=== PATIENT | female | born 1960 | race Caucasian/White ===

== ENCOUNTER 2022-10-20 06:22 | Day surgery (SDC) | payer MEDICAID ==
[2022-10-11 10:08] LABS: BASOPHILS % (AUTO) 0.4 % (0-1); EOSINOPHILS # (AUTO) 0.2 X10'3 (0-0.9); EOSINOPHILS % (AUTO) 2.2 % (0-6); LYMPHOCYTES # (AUTO) 2.4 X10'3 (1.1-4.8); LYMPHOCYTES % (AUTO) 32.8 % (21-51); MEAN CORPUSCULAR HEMOGLOBIN 33.3 PG (27.0-31.0); MEAN CORPUSCULAR HGB CONC 34.5 g/dL (33.0-36.5); MEAN CORPUSCULAR VOLUME 96.5 FL (78-98); MEAN PLATELET VOLUME 8.2 FL (7.4-10.4); MONOCYTES # (AUTO) 0.5 X10'3 (0-0.9); MONOCYTES % (AUTO) 6.3 % (2-12); NEUTROPHILS # (AUTO) 4.2 X10'3 (1.8-7.7); NEUTROPHILS % (AUTO) 58.3 % (42-75); PRE OP HEMATOCRIT 46.4 % (35.0-45.0); PRE OP PLATELET COUNT 235 X10'3 (140-440); RED BLOOD COUNT 4.81 X10'6 (4.20-5.60); RED CELL DISTRIBUTION WIDTH 13.8 % (11.5-14.5)
[2022-10-11 10:36] LABS: ALBUMIN 4.1 G/DL (3.4-5.0); ALBUMIN/GLOBULIN RATIO 1.2 (1.1-1.5); ALKALINE PHOSPHATASE 89 IU/L (46-116); BLOOD UREA NITROGEN 16 MG/DL (7-18); BUN/CREATININE RATIO 16.7 (10.0-20.0); CALCIUM 9.5 MG/DL (8.5-10.1); CHLORIDE 104 MMOL/L (99-107); CREATININE 0.96 MG/DL (0.40-0.90); PRE OP ALT 20 U/L (30-65); PRE OP ANION GAP 7 (8-16); PRE OP AST 21 U/L (10-37); PRE OP BILIRUB, TOTAL 0.3 MG/DL (0.0-1.0); PRE OP GLUCOSE 86 MG/DL (70-104); PRE OP POTASSIUM 4.5 MMOL/L (3.4-5.1); PRE OP SODIUM 140 MMOL/L (135-145); TOTAL CARBON DIOXIDE 28.7 MMOL/L (24-32); TOTAL PROTEIN 7.5 G/DL (6.4-8.2); eGFR 59 ML/MIN
[~2022-10-20] VITALS: Ht 167.6 cm; Wt 73.3 kg
[2022-10-20] VITALS (13 sets, daily range): BP systolic 106–138; BP diastolic 54–81
[~2022-10-20 06:22] MED LIST: LISI10TA27 PO; OMEP40CA21 PO; cefazolin 2gm/D5W 100mL 100 ML IV ONE; famotidine 20mg tablet PO ONE; ringers solution, lacted 1,000 ML IV SCH
[2022-10-20] MEDS ORDERED: BUPIVAcaine/PF 2.5 mg/ml (0.25%) 30ml vial ONE (06:41)
[2022-10-20] MEDS ORDERED: LIDOcaine 1% 30ml preserv. free vial ONE (07:50)
[2022-10-20] MEDS ORDERED: MIDAZolam 1 MG/ML 5ML VIAL ONE (09:26)
[2022-10-20] MEDS ORDERED: fentaNYL/PF 50MCG/1 ML 2ML syringe ONE (09:26)
[2022-10-20] MEDS ORDERED: BUPIVAcaine/PF 2.5 mg/ml (0.25%) 30ml vial IJ ONE (09:30)
--- NOTE | 2022-10-20 10:17 | NUR ---
Received from OR via [facility], accompanied by Anesthesiologist DR KERNS and report given by Anesthesiologist AND SQL DATA ANALYST. PT DROWSY, DENIES PAIN. RIGHT HAND/WRIST TO ELBOW AND THUMB W/BIAS DRSG COVERING INCISION/DRSG CDI. 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 Addendum: 10/20/22 at 1044 by Nita Garcia RN Amended: Links added.
[2022-10-20] MEDS ORDERED: HYDROcodone/acetaminophen 10/325mg tab PO ONE (11:15)
--- NOTE | 2022-10-20 12:06 | NUR ---
PT IS DRESSED, READING A BOOK WAITING FOR HER RIDE. PAIN IS DOWN TO 3/10, PT HAS HAD CRACKERS AND WATER. AMBULATES SAFELY, D/C INSTRUCTIONS GIVEN AND GONE OVER W/PT WHO VERBALIZES UNDERSTANDING. Addendum: 10/20/22 at 1207 by Nita Garcia RN Amended: Links added.
--- NOTE | 2022-10-20 12:37 | NUR ---
PT UP AND AMBULATES SAFELY. PT D/CD TO HOME VIA W/C TO PRIVATE VEHICLE W/O INCIDENT. Addendum: 10/20/22 at 1249 by Nita Garcia RN Amended: Links added.
== END 2022-10-20 12:37 | disposition home or self-care (01) ==
LOC: PAS 06:22
PROVIDERS: ATTEND Orthopaedic Surgery Hand Surgery
DX: M18.11 Unilateral primary osteoarthritis of first carpometacarpal joint, right hand (principal); M65.4 Radial styloid tenosynovitis [de Quervain]; J44.9 Chronic obstructive pulmonary disease, unspecified; G47.30 Sleep apnea, unspecified; I10 Essential (primary) hypertension; G43.909 Migraine, unspecified, not intractable, without status migrainosus; F32.A Depression, unspecified; F41.9 Anxiety disorder, unspecified; F43.10 Post-traumatic stress disorder, unspecified; K21.9 Gastro-esophageal reflux disease without esophagitis; B19.20 Unspecified viral hepatitis C without hepatic coma; Z95.0 Presence of cardiac pacemaker; Z98.51 Tubal ligation status; Z98.890 Other specified postprocedural states; Z90.710 Acquired absence of both cervix and uterus; F17.210 Nicotine dependence, cigarettes, uncomplicated; Z88.8 Allergy status to other drugs, medicaments and biological substances; Z91.09 Other allergy status, other than to drugs and biological substances; Z72.89 Other problems related to lifestyle
CPT/HCPCS: 25000; 25310; 25447; 36415; 80053; 82948; 85025; 93005; J0690; J2250; J3010; J3490; J7030; J7120; Z7506; Z7512; A4215; A4618; A7000